=== PATIENT | male | born 1960 | race Caucasian/White ===

== ENCOUNTER → 2017-02-03 | Outpatient (CLI) | payer MEDICAID ==
[~2017-02-03] MED LIST: ADVA250A INH; ALBUAER3 INH; CARV6.252 PO; CEPH-460 PO; LEVA750T9 PO; LEVO125T4 PO; LISI-519 PO; OMEP20TA93 PO; PERC10TA27 PO; [UNRECOGNIZED DRUG - CODE] SL
[2017-02-03 10:18] LABS: PROTHROMBIN TIME - PATIENT 10.6 SEC (9.8-11.6)
[2017-02-03 10:24] LABS: BLOOD, URINE TRACE (NEG); COMMENT (UR) CULT NOT INDICATED; CULTURE IF INDICATED CULT NOT INDICATED; GLUCOSE,URINE NEG (NEG); KETONE, URINE NEG (NEG); MUCUS URINE FEW /lpf (OCC); NITRITE,URINE NEG (NEG); PH, URINE 5.5 (5.0-8.5); URINE COLOR YELLOW (YELLW/STRAW)
[2017-02-03 10:32] LABS: ANION GAP 7 MEQ/L (5-15); AST (GOT) 34 U/L (15-37); BICARBONATE 25.5 MEQ/L (21.0-32.0); BLOOD UREA NITROGEN 12 MG/DL (7-18); CHLORIDE 103 MEQ/L (98-107); GLOMERULAR FILTRATION RATE 80 ML/MIN (>89); GLUCOSE,FASTING 101 MG/DL (74-99); POTASSIUM 4.3 MEQ/L (3.5-5.1); SODIUM (NA) 135 MEQ/L (136-145)
[2017-02-03 10:34] LABS: ALT (GPT) 28 U/L (12-78)
[2017-02-03 10:36] LABS: ALKALINE PHOSPHATASE 66 U/L (45-117); TOTAL BILIRUBIN ADULT 0.3 MG/DL (0.2-1.0)
--- NOTE | 2017-02-03 10:44 | RADRPT ---
EXAM DATE/TIME: 02/03/2017 10:27 [facility] COMPARISON: No previous studies available for comparison. INDICATIONS : Evaluate for pneumothorax, pneumonia and communicable diseases. Pre-op for right bunionectomy. MEDICAL HISTORY : Hypertension. Chronic obstructive pulmonary disease. Asthma. Renal cancer. SURGICAL HISTORY : Partial kidney removal. ENCOUNTER: Initial ACUITY: 1 day PAIN SCORE: 0/10 LOCATION: Bilateral chest FINDINGS: PA and lateral views of the chest demonstrates hyperinflation which can be seen with CO PD. No infiltrates are seen. Heart is normal in size. The mediastinal contours are unremarkable. O sseous structures are intact. CONCLUSION: Hyperinflation which can be seen with COPD. No acute cardiopulmonary disease an d no evidence for an infiltrate. Pawan Loza MD on February 03, 2017 at 10:42 Board Certified Radiologist. This report was verified electronically.
[2017-02-03 11:02] LABS: AUTOMATED NEUTROPHIL # 6.2 TH/MM3 (1.8-7.7); BASOPHIL % 0.3 % (0.0-2.0); EOSINOPHIL # 0.2 TH/MM3 (0-0.4); EOSINOPHIL % 2.1 % (0.0-4.0); HEMO FLAGS DIFF FINAL; LYMPH % 13.7 % (9.0-44.0); LYMPHOCYTE # 1.1 TH/MM3 (1.0-4.8); MEAN CELL VOLUME 90.2 FL (80.0-100.0); MEAN CORPUSCULAR HEMOGLOBIN 30.1 PG (27.0-34.0); MEAN CORPUSCULAR HGB CONC 33.3 % (32.0-36.0); MONO % 10.3 % (0.0-8.0); NEUT % 73.6 % (16.0-70.0); PLATELET COUNT 235 TH/MM3 (150-450); RED BLOOD COUNT 4.87 MIL/MM3 (4.50-5.90); RED CELL DISTRIBUTION WIDTH 14.5 % (11.6-17.2); WHITE BLOOD COUNT 8.4 TH/MM3 (4.0-11.0)
--- NOTE | 2017-02-03 11:32 | EKG ---
Date Performed: 02/03/2017 Time Performed: 10:12:40 PTAGE: 56 years EKG: Sinus rhythm INCOMPLETE RIGHT BUNDLE BRANCH BLOCK LEFT ANTERIOR FASCICULAR BLOCK ABNORMAL ECG NO PREVIOUS TRACING DOCTOR: Arthur Torres Interpretating Date/Time 02/03/2017 11:31:51
== END ==
LOC: CPRE 09:23
PROVIDERS: ATTEND Podiatrist Primary Podiatric Medicine
DX: Z01.812 Encounter for preprocedural laboratory examination (principal); Z01.811 Encounter for preprocedural respiratory examination; Z01.810 Encounter for preprocedural cardiovascular examination; M20.41 Other hammer toe(s) (acquired), right foot; M20.11 Hallux valgus (acquired), right foot; M24.374 Pathological dislocation of right foot, not elsewhere classified; I45.2 Bifascicular block
CPT/HCPCS: 36415; 71020; 80053; 81001; 85025; 85610; 93005

== ENCOUNTER → 2017-02-07 | Day surgery (SDC) | payer MEDICAID ==
[~2017-02-07] VITALS: Ht 182.9 cm; Wt 105.3 kg
[~2017-02-07] MED LIST changes: +BUPIVACAINE HCL PF 0.5% 30 ML VIAL ONE; -CEPH-460 PO; +CHLORHEXIDINE GLUCONATE 2 % 1 PACK (2 CLOTHS) TOPICAL PRN; +DEXAMETHASONE SOD PHOS 4 MG/ML VIAL IV ONE; +DO NOT ADM ANY ANTICOAGULANT DRUGS PRN; +FAMOTIDINE 20 MG/2 ML VIAL ONE; +GLYCOPYRROLATE 1 MG/5 ML SYRINGE IV PUSH ONE; +INSULIN HUMAN REGULAR 1,000 UNITS/10 ML VIAL SQ PRN; +LACTATED RINGER'S 1000 ML IV PRN; -LEVA750T9 PO; +LIDOCAINE HCL 1% 50 ML VIAL ONE; +LIDOCAINE HCL 1% PF 5 ML AMPULE OTHER ONE; +METOPROLOL TARTRATE 25 MG TAB PO PRN; +MIDAZOLAM HCL 2 MG/2 ML VIAL IV ONE; +NALOXONE HCL 0.4 MG/ML AMP IV PUSH PRN; +NEOSTIGMINE 3 MG/3 ML SYR IV ONE; +ONDANSETRON HCL 4 MG/2 ML VIAL IV PUSH ONE; +PHENYLEPH/NS 1000 MCG/10 ML SYR IV ONE; +POVIDONE IODINE 5% (ANTISEPSIS KIT) 4 APPLICATIONS EACH NARE PRN; +PROPOFOL 200 MG/20 ML AMP IV ONE; +Post-op Orders (for Pharmacy) MISC XX ONE; +ROCURONIUM INJ 50 MG/5 ML SYRINGE IV PUSH ONE; +SODIUM CHLORID 0.9% 500 ML IV PRN; +SODIUM CHLORIDE 0.9% FLUSH 10 ML FLUSH IV FLUSH PRN; +SODIUM CHLORIDE 0.9% FLUSH 10 ML FLUSH IV FLUSH SCH; +ePHEDrine/NS 25 MG/5 ML SYR IV ONE
[2017-02-07] MEDS: ceFAZolin 2 GM PREMIX 50 ML IV SCH ×2 (09:03→09:32)
--- NOTE | 2017-02-07 10:53 | PD.OP ---
Operative Report Date of Surgery: Feb 07, 2017 Preoperative Diagnosis: (1) Hallux abducto valgus (2) Hammertoe of right foot Right foot and right second toe Postoperative Diagnosis: (1) Hallux abducto valgus (2) Hammertoe of right foot Right foot and right second toe Procedure: 1) Maher bunionectomy right foot 2) resection of proximal phalanx base and MPJ second toe right foot 3) arthrodesis PIPJ second toe right foot Anesthesia: General inhalation Surgeon: Pawan Turner DPM Custom Shop Worker(s): None Operation and Findings: Patient is brought to the operating room placed on the operating table in a supine position. A pneumatic ankle cuff was placed around the patient's right ankle after adequate web roll padding. Patient was given general inhalation anesthesia. The right foot was prepped and draped in the usual sterile manner. After the appropriate timeout was performed the right foot was elevated above the operating table for a period 3 minutes at which time the pneumatic ankle cuff was inflated to 250 mmHg. The right foot was lowered to the operating table and attention was directed to the right foot which was noted to have severe hallux abductovalgus deformity with arthritic changes at the first MPJ. Some also noted patient had a severe hammertoe second deformity with subluxation at the metatarsal phalangeal joint . Attention was directed to the bunion and hallux where a 5 cm linear incision was centered over the metatarsal phalangeal joint. The incision was made medial to the extensor hallucis longus tendon. Incision was deepened down through subcutaneous tissue taking care to tie off any superficial bleeding vessels and retracting all vital structures. Incision was deepened in the head of the first metatarsal and base of the proximal phalanx was freed up from its subcutaneous and capsular edges. Using an oscillating saw the dorsal medial bony eminence was resected. At this time a Maher bunionectomy was performed by removing the proximal third of the first proximal phalanx. Should be noted the hallux now set a more correct anatomical position. There is flushed with copious amounts of sterile saline. Capsular edges were purse stringed into the space between the first metatarsal head and the remaining proximal phalanx. Subcutaneous tissue and capsular edges were closed with 30 and 2-0 Vicryl. Skin edges were reapproximated and closed with 3 -0 Prolene. Should be noted that the hallux sat in a more correct anatomical position. Tissue was directed to the second toe the right foot which is noted to have severe hammertoe contraction which was fixed at the proximal interphalangeal joint along with subluxation of the second MPJ at this time a 6 cm linear incision was made on the dorsal aspect of the second toe proximal to the MPJ distal to the intermediate phalanx. The incision was deepened using sharp and blunt dissection taking care to tie off all superficial bleeding vessels and retracting all vital structures. At this time the proximal interphalangeal joint was freed up from its attachments and using an oscillating saw the head of the proximal phalanx and the base of the intermediate phalanx was resected. Attention was then directed back to the second MPJ where the base of the proximal phalanx was freed up and resected in order to get reduction of the contraction and subluxation. At this time a 0.45 K wire was driven from the intermittent immediate phalanx distally out the tip of the second toe and then retrograded back into the proximal phalanx and the head of the first metatarsal. The second toe was noted to sit in the correct anatomical position. The cutaneous tissue was reapproximated and closed with 3-0 Vicryl. Skin edges were reapproximated and closed with 3-0 Prolene. The right foot first and second ray area was then anesthetized with 15 cc of 0.5 % Marcaine. Adaptic was applied over the surgical incision sites followed by 4 x 4's Sanjuana. Pneumatic ankle cuff was deflated at the 59 minute ramon and the neurovascular status returned to all digits of the right foot Sponge and instrument counts were noted to be correct. Estimated blood loss was less than 10 cc. Patient tolerated procedures and anesthesia well and left the OR to PACU in apparent satisfactory condition with all vital signs stable and neurovascular status intact to all digits of the right foot. Pawan Turner DPM Feb 07, 2017 10:53
--- NOTE | 2017-02-07 11:34 | RADRPT ---
EXAM DATE/TIME: 02/07/2017 11:10 [facility] COMPARISON: No previous studies available for comparison. INDICATIONS : Post-op right foot, second digit bunionectomy. MEDICAL HISTORY : Hypertension. Chronic obstructive pulmonary disease. Asthma. Renal cancer. SURGICAL HISTORY : Partial kidney removal. ENCOUNTER: Initial ACUITY: 1 day PAIN SCORE: 0/10 LOCATION: Right foot FINDINGS: Again is seen bridging the second tarsometatarsal joint. Subluxation is evident at the first tarsome tatarsal joint. CONCLUSION: Findings as above.. Torito Mercedes MD FACR on February 07, 2017 at 11:31 Board Certified Radiologist. This report was verified electronically.
[2017-02-07 11:55] VITALS: BP 108/66; PULSE 74; RESP 18; TEMP 98.9; O2SAT 96
== END | disposition home or self-care (01) ==
LOC: HSDC 07:11
PROVIDERS: ATTEND Podiatrist Primary Podiatric Medicine
DX: M20.41 Other hammer toe(s) (acquired), right foot (principal); M20.11 Hallux valgus (acquired), right foot; M24.374 Pathological dislocation of right foot, not elsewhere classified; I10 Essential (primary) hypertension; J44.9 Chronic obstructive pulmonary disease, unspecified; Z85.528 Personal history of other malignant neoplasm of kidney
CPT/HCPCS: 01480; 28126; 28285; 28292; 73630; J0690; J1100; J2250; J2370; J2405; J2710; J3010; J7120; L3260

== ENCOUNTER 2017-02-17 02:45 | Inpatient (IN) | payer MEDICAID ==
[~2017-02-17] VITALS: Ht 182.9 cm; Wt 102.4 kg
[~2017-02-17 02:45] MED LIST changes: -BUPIVACAINE HCL PF 0.5% 30 ML VIAL ONE; -CHLORHEXIDINE GLUCONATE 2 % 1 PACK (2 CLOTHS) TOPICAL PRN; -DEXAMETHASONE SOD PHOS 4 MG/ML VIAL IV ONE; -DO NOT ADM ANY ANTICOAGULANT DRUGS PRN; -FAMOTIDINE 20 MG/2 ML VIAL ONE; -GLYCOPYRROLATE 1 MG/5 ML SYRINGE IV PUSH ONE; -INSULIN HUMAN REGULAR 1,000 UNITS/10 ML VIAL SQ PRN; -LACTATED RINGER'S 1000 ML IV PRN; -LIDOCAINE HCL 1% 50 ML VIAL ONE; -LIDOCAINE HCL 1% PF 5 ML AMPULE OTHER ONE; -METOPROLOL TARTRATE 25 MG TAB PO PRN; -MIDAZOLAM HCL 2 MG/2 ML VIAL IV ONE; -NALOXONE HCL 0.4 MG/ML AMP IV PUSH PRN; -NEOSTIGMINE 3 MG/3 ML SYR IV ONE; -ONDANSETRON HCL 4 MG/2 ML VIAL IV PUSH ONE; -PHENYLEPH/NS 1000 MCG/10 ML SYR IV ONE; -POVIDONE IODINE 5% (ANTISEPSIS KIT) 4 APPLICATIONS EACH NARE PRN; -PROPOFOL 200 MG/20 ML AMP IV ONE; -Post-op Orders (for Pharmacy) MISC XX ONE; -ROCURONIUM INJ 50 MG/5 ML SYRINGE IV PUSH ONE; -SODIUM CHLORID 0.9% 500 ML IV PRN; -SODIUM CHLORIDE 0.9% FLUSH 10 ML FLUSH IV FLUSH PRN; -SODIUM CHLORIDE 0.9% FLUSH 10 ML FLUSH IV FLUSH SCH; -ePHEDrine/NS 25 MG/5 ML SYR IV ONE
[2017-02-17 04:00] VITALS: BP 132/76; PULSE 74; RESP 17; TEMP 96.4; O2SAT 97
[2017-02-17] MEDS ORDERED: ACETAMINOPHEN 325 MG TAB PO PRN (05:00)
[2017-02-17] MEDS ORDERED: MAGNESIUM HYDROXIDE SUSP 30 ML CUP PO PRN (05:00)
[2017-02-17] MEDS ORDERED: RESP: ALBUTEROL 2.5 MG/IPRATROPIUM 0.5 MG NEB (PRN) NEB (05:00)
[2017-02-17] MEDS ORDERED: SODIUM CHLORIDE 0.9% FLUSH 10 ML FLUSH IV FLUSH PRN (05:00)
[2017-02-17] MEDS ORDERED: SENNOSIDES 8.6 MG TAB PO PRN (05:00)
[2017-02-17] MEDS ORDERED: LACTULOSE SYRUP 20 GM/30 ML CUP PO PRN (05:00)
[2017-02-17] MEDS ORDERED: NALOXONE HCL 0.4 MG/ML AMP IV PUSH PRN (05:00)
[2017-02-17] MEDS ORDERED: BISACODYL 10 MG SUPP RECTAL PRN (05:00)
[2017-02-17] MEDS: oxyCODONE/ACETAMINOPHEN 10 MG/325 MG TAB PO PRN ×5 (05:38→22:46)
--- NOTE | 2017-02-17 06:21 | HHI.HP ---
[facility] Trinidad Greer Admission Diagnosis Right toe postsurgical cellulitis following bunionectomy and pin fixation of second phalanx . Diagnoses: (1) Cellulitis, wound, post-operative Chief Complaint: Right foot pain Travel History International Travel<30 Days: No Contact w/Intl Traveler <30 Da: No History of Present Illness Mr. Hendrickson is a 56 year old male with a history of atrial fibrillation, COPD, depression, Hodgkin's lymphoma, hypertension, renal carcinoma, and sleep apnea who underwent the following procedure: Maher bunionectomy right foot, resection of proximal phalanx base and MPJ second toe right foot, and arthrodesis PIPJ second toe right foot by Dr. Turner on 02/07/17 and presented to [facility] for evaluation of increased pain and swelling of right first toe with fluid leaking out from underneath his bandage. He was found to have findings consistent with postoperative cellulitis and was transferred to [facility] for evaluation by Dr. Turner and medical management. Patient is seen in the hospital room. He tells me that he has had pain from the surgery since the but it has increased in severity and he says he couldn't see all his underneath the large bandaging. He was supposed to have a follow-up appointment with Dr. Turner today, but decided to go to the hospital last night his pain was so severe and worse with movement and pressure. He noted extensive redness and discharge from the wounds upon removal of the bandage at the emergency room at [facility]. Records from [facility] were reviewed and the following is noted: Right foot x-ray was performed 02/17/2017 showing postsurgical changes of bunionectomy with reaction at the base of the great toe. Soft tissue swelling and focal osteopenia of the resection site without distractive changes favored to represent postsurgical hyperemia rather than osteomyelitis. Post surgical change of pin fixation second phalanx subacute fracture of fifth proximal phalanx. White blood count was 8.9 and electrolytes were unremarkable with the exception of elevated glucose of 130. The patient received vancomycin 1 g at 0006 and Zosyn 3.375 at 0111. The patient denies any fever, chest pain, shortness of breath, dizziness, fatigue, nausea, vomiting, or diarrhea. He reports chronically feeling chilled and noted no recent increase. . Review of Systems Except as stated in HPI: all other systems reviewed are Neg Past Family Social History Past Medical History Atrial fibrillation status post ablation TIA COPD Depression Hodgkin's lymphoma Hypertension Renal carcinoma Sleep apnea . Past Surgical History 02/07/17 - 1) Maher bunionectomy right foot 2) resection of proximal phalanx base and MPJ second toe right foot 3) arthrodesis PIPJ second toe right foot by Dr. Turner Left partial nephrectomy 2010 Right knee arthroscopy 3 Right parotidectomy . Reported Medications . Reported Meds & Active Scripts Active Percocet (Oxycodone-Acetaminophen) 10-325 mg Tab 1 Tab PO Q4H PRN Reported Carvedilol 6.25 Mg Tab 6.25 Mg PO DAILY Subsys Sublinqual (Fentanyl) Unknown Strength [place] Unknown Dose SL DIRECTED Proair Hfa 8.5 GM Inh (Albuterol Sulfate) 90 Mcg/Act Aer 1 Puff INH Q4H PRN 108 mcg/actuation Omeprazole 20 Mg Tab 20 Mg PO DAILY Lisinopril 5 Mg Tab 5 Mg PO DAILY Levothyroxine (Levothyroxine Sodium) 125 Mcg Tab 125 Mcg PO DAILY Advair Diskus Inh (Fluticasone-Salmeterol Inh) 250-50 Mcg/Blist Aer 1 Puff INH BID Rinse mouth after use. Allergies: Coded Allergies: No Known Allergies (Verified Adverse Reaction, Unknown, 02/10/17) Active Ordered Medications Current Medications Sodium Chloride (NS Flush) 2 ml UNSCH PRN IV FLUSH FLUSH AFTER USING IV ACCESS ; Start 02/17/17 at 05:00 Sodium Chloride (NS Flush) 2 ml BID IV FLUSH ; Start 02/17/17 at 09:00 Acetaminophen (Tylenol) 650 mg Q4H PRN PO TEMP > 100.4; Start 02/17/17 at 05: 00 Naloxone HCl (Narcan Inj) 0.4 mg UNSCH PRN IV PUSH SEE LABEL COMMENTS; Start 02/17/17 at 05:00 Magnesium Hydroxide (Milk Of Magnesia Liq) 30 ml Q12H PRN PO Mild constipation ; Start 02/17/17 at 05:00 Sennosides (Senokot) 17.2 mg Q12H PRN PO Moderate constipation; Start at 05:00 Bisacodyl (Dulcolax Supp) 10 mg DAILY PRN RECTAL SEVERE CONSITIPATION; Start 02/17/17 at 05:00 Lactulose (Lactulose Liq) 30 ml DAILY PRN PO SEVERE CONSITIPATION; Start 02/17 at 05:00 Albuterol/ Ipratropium (Duoneb Neb) 1 ampule Q4HR NEB PRN NEB WHEEZING; Start 02/17/17 at 05:00 Oxycodone/ Acetaminophen (Percocet 10-325 Mg) 1 tab Q4H PRN PO Pain > 4 Last administered on 02/17/17t 05:38; Start 02/17/17 at 05:15 Carvedilol (Coreg) 6.25 mg DAILY PO ; Start 02/17/17 at 09:00 Levothyroxine Sodium (Synthroid) 125 mcg DAILY@0600 PO ; Start 02/17/17 at 09: 00 Lisinopril (Prinivil) 5 mg DAILY PO ; Start 02/17/17 at 09:00 Budesonide/ Formoterol Fumarate (Symbicort 160-4.5 Inh) 2 puff BID INH ; Start 02/17/17 at 09:00 Pantoprazole Sodium (Protonix) 20 mg DAILY PO ; Start 02/17/17 at 09:00 Pneumococcal Polyvalent Vaccine (Pneumovax-23 Inj) 25 mcg ONCE ONCE IM ; Start 02/18/17 at 10:00; Stop 02/18/17 at 10:01 Influenza Virus Vaccine (Flu (Quadrivalent) Vaccine Inj) 0.5 ml ONCE ONCE IM ; Start 02/18/17 at 10:00; Stop 02/18/17 at 10:01 . Family History Mother with schizophrenia and diabetes mellitus Father with lung cancer . Social History Tobacco: Smokes over one pack per day since the age of 16 . . Physical Exam Vital Signs Vital Signs Date Time Temp Pulse Resp B/P (MAP) Pulse Ox O2 Delivery O2 Flow Rate FiO2 02/17/17 04:00 96.4 74 17 132/76 (94) 97 Physical Exam GENERAL: This is a well-nourished, well-developed patient, in no apparent distress. SKIN: Right distal foot with erythema and edema, first and second phalanx with pale skin and serous/purulent exudate noted from surgical wound. HEAD: Atraumatic. Normocephalic. EYES: No scleral icterus. No injection or drainage. ENT: Nose without bleeding, purulent drainage. NECK: Trachea midline. No JVD. CARDIOVASCULAR: Regular rate and rhythm without murmurs, gallops, or rubs. RESPIRATORY: Clear to auscultation. Breath sounds diminished but equal bilaterally. No wheezes, rales, or rhonchi. GASTROINTESTINAL: Abdomen soft, non-tender, nondistended. No guarding. MUSCULOSKELETAL: Extremities without clubbing, cyanosis, or edema. No calf tenderness. NEUROLOGICAL: Awake and alert. Motor and sensory grossly within normal limits. Normal speech. . Caprini VTE Risk Assessment Caprini VTE Risk Assessment: Mod/High Risk (score >= 2) Caprini Risk Assessment Model Point Value = 1 Point Value = 2 Point Value = 3 Point Value = 5 Age 41-60 Minor surgery BMI > 25 kg/m2 Swollen legs Varicose veins or History of unexplained or recurrent spontaneous Oral contraceptives or hormone replacement Sepsis (< 1 month) Serious lung disease, including pneumonia (< 1 month) Abnormal pulmonary function Acute myocardial infarction Congestive heart failure (< 1 month) History of inflammatory bowel disease Medical patient at bed rest Age 61-74 Arthroscopic surgery Major open surgery (> 45 min) Laparoscopic surgery (> 45 min) Malignancy Confined to bed (> 72 hours) Immobilizing plaster cast Central venous access Age >= 75 History of VTE Family history of VTE Factor V Leiden Prothrombin [id number] Lupus anticoagulant Anticardiolipin antibodies Elevated serum homocysteine Heparin-induced thrombocytopenia Other congenital or acquired thrombophilia Stroke (< 1 month) Elective arthroplasty Hip, pelvis, or leg fracture Acute spinal cord injury (< 1 month) Prophylaxis Regimen Total Risk Factor Score Risk Level Prophylaxis Regimen 0-1 Low Early ambulation 2 Moderate Order ONE of the following: *Sequential Compression Device (SCD) *Heparin 5000 units SQ BID 3-4 Higher Order ONE of the following medications: *Heparin 5000 units SQ TID *Enoxaparin/Lovenox 40 mg SQ daily (WT < 150 kg, CrCl > 30 mL/min) *Enoxaparin/Lovenox 30 mg SQ daily (WT < 150 kg, CrCl > 10-29 mL/min) *Enoxaparin/Lovenox 30 mg SQ BID (WT < 150 kg, CrCl > 30 mL/min) AND/OR *Sequential Compression Device (SCD) 5 or more Highest Order ONE of the following medications: *Heparin 5000 units SQ TID (Preferred with Epidurals) *Enoxaparin/Lovenox 40 mg SQ daily (WT < 150 kg, CrCl > 30 mL/min) *Enoxaparin/Lovenox 30 mg SQ daily (WT < 150 kg, CrCl > 10-29 mL/min) *Enoxaparin/Lovenox 30 mg SQ BID (WT < 150 kg, CrCl > 30 mL/min) AND *Sequential Compression Device (SCD) Assessment and Plan Problem List: (1) Cellulitis, wound, post-operative ICD Code: T81.4XXA - Infection following a procedure, initial encounter (2) COPD (chronic obstructive pulmonary disease) ICD Code: J44.9 - Chronic obstructive pulmonary disease, unspecified Status: Chronic (3) Hypertension ICD Code: I10 - Essential (primary) hypertension Status: Chronic (4) Hypothyroidism ICD Code: E03.9 - Hypothyroidism, unspecified Status: Chronic (5) Atrial fibrillation ICD Code: I48.91 - Unspecified atrial fibrillation Assessment and Plan Mr. Hendrickson is a 56 year old male with a history of atrial fibrillation, COPD, depression, Hodgkin's lymphoma, hypertension, renal carcinoma, and sleep apnea who underwent the following procedure: Maher bunionectomy right foot, resection of proximal phalanx base and MPJ second toe right foot, and arthrodesis PIPJ second toe right foot by Dr. Turner on 02/07/17 and presented to [facility] for evaluation of increased pain and swelling of right first toe with fluid leaking out from underneath his bandage. He was found to have findings consistent with postoperative cellulitis and was transferred to [facility] for evaluation by Dr. Turner and medical management. Cellulitis right distal foot - postoperative bunionectomy - Right foot x-ray was performed 02/17/2017 at [facility] showing postsurgical changes of bunionectomy with reaction at the base of the great toe. Soft tissue swelling and focal osteopenia of the resection site without distractive changes favored to represent postsurgical hyperemia rather than osteomyelitis. Post surgical change of pin fixation second phalanx subacute fracture of fifth proximal phalanx. - Defer further imaging to podiatry - Consult podiatry - Oxycodone/APAP 10/325 mg every 4 hours as needed for pain - Antibiotics: Continue vancomycin and Zosyn - NPO COPD - Continue on Symbicort - Duo nebs every 4 hours as needed for wheezing Hypertension - Resume home medications (carvedilol and lisinopril) - Monitor blood pressure trends and adjust as indicated Hypothyroidism - Continue home Synthroid and monitor History of atrial fibrillation - Cardiac telemetry to monitor for arrhythmia DVT prophylaxis - SCDs . Discussed Condition With Patient, RN, and Dr. Longoria . Physician Certification 2 Midnight Certification Type: Admission for Inpatient Services Order for Inpatient Services The services are ordered in accordance with Medicare regulations or non- Medicare payer requirements, as applicable. In the case of services not specified as inpatient-only, they are appropriately provided as inpatient services in accordance with the 2-midnight benchmark. Estimated LOS (days): 3 days is the estimated time the patient will need to remain in the hospital, assuming treatment plan goals are met and no additional complications. Post-Hospital Plan: Home Candice Prabhakar Feb 17, 2017 06:21
[2017-02-17] MEDS ORDERED: Vancomycin Consult Pharmacy 1 EA OTHER SCH (07:00)
[2017-02-17 08:00] VITALS: BP 108/68; PULSE 73; RESP 17; TEMP 97.6; O2SAT 97
[2017-02-17 09:03] LABS: AUTOMATED NEUTROPHIL # 5.8 TH/MM3 (1.8-7.7); BASOPHIL % 0.6 % (0.0-2.0); EOSINOPHIL # 0.2 TH/MM3 (0-0.4); EOSINOPHIL % 2.5 % (0.0-4.0); HEMATOCRIT 37.8 % (39.0-51.0); HEMO FLAGS DIFF FINAL; LYMPH % 12.2 % (9.0-44.0); MEAN CELL VOLUME 89.1 FL (80.0-100.0); MEAN CORPUSCULAR HEMOGLOBIN 30.4 PG (27.0-34.0); MEAN CORPUSCULAR HGB CONC 34.2 % (32.0-36.0); MONO % 10.6 % (0.0-8.0); NEUT % 74.1 % (16.0-70.0); PLATELET COUNT 262 TH/MM3 (150-450); RED BLOOD COUNT 4.25 MIL/MM3 (4.50-5.90); RED CELL DISTRIBUTION WIDTH 14.5 % (11.6-17.2); WHITE BLOOD COUNT 7.8 TH/MM3 (4.0-11.0)
--- NOTE | 2017-02-17 09:07 | PD.POD.CON ---
Patient Intake Chief Complaint Pain and possible infection right foot Consult Requested by Reason for Consult Evaluation of right foot pain and possible infection Primary Care Physician Trinidad Greer History of Present Illness Patient is a 56-year-old male who is approximately 10 days status post Maher bunionectomy and arthrodesis second toe right foot. Patient is being overly active at home. He has a postop appointment scheduled in the office today. Yesterday he noticed some drainage coming from his right foot through the dressing. Patient went to [facility] which I ordered lab's and x- rays. He had a normal white count. He is afebrile. He was transferred from [facility] to [place] and admitted. He was started on Zosyn and vancomycin. Patient seen in his room in no apparent distress and comfortable. Coded Allergies: No Known Allergies (Verified Adverse Reaction, Unknown, 02/10/17) Preferred Language to Discuss: Greenlandic Barriers to Learning: None Vital Signs Date Time Temp Pulse Resp B/P (MAP) Pulse Ox O2 Delivery O2 Flow Rate FiO2 02/17/17 08:00 97.6 73 17 108/68 (81) 97 02/17/17 04:00 96.4 74 17 132/76 (94) 97 Pain scale used: 0-10 numeric scale Pain score: 4 Medications Current Medications Sodium Chloride (NS Flush) 2 ml UNSCH PRN IV FLUSH FLUSH AFTER USING IV ACCESS ; Start 02/17/17 at 05:00 Sodium Chloride (NS Flush) 2 ml BID IV FLUSH ; Start 02/17/17 at 09:00 Acetaminophen (Tylenol) 650 mg Q4H PRN PO TEMP > 100.4; Start 02/17/17 at 05: 00 Naloxone HCl (Narcan Inj) 0.4 mg UNSCH PRN IV PUSH SEE LABEL COMMENTS; Start 02/17/17 at 05:00 Magnesium Hydroxide (Milk Of Magnesia Liq) 30 ml Q12H PRN PO Mild constipation ; Start 02/17/17 at 05:00 Sennosides (Senokot) 17.2 mg Q12H PRN PO Moderate constipation; Start at 05:00 Bisacodyl (Dulcolax Supp) 10 mg DAILY PRN RECTAL SEVERE CONSITIPATION; Start 02/17/17 at 05:00 Lactulose (Lactulose Liq) 30 ml DAILY PRN PO SEVERE CONSITIPATION; Start 02/17 at 05:00 Albuterol/ Ipratropium (Duoneb Neb) 1 ampule Q4HR NEB PRN NEB WHEEZING; Start 02/17/17 at 05:00 Oxycodone/ Acetaminophen (Percocet 10-325 Mg) 1 tab Q4H PRN PO Pain > 4 Last administered on 02/17/17t 05:38; Start 02/17/17 at 05:15 Carvedilol (Coreg) 6.25 mg DAILY PO ; Start 02/17/17 at 09:00 Levothyroxine Sodium (Synthroid) 125 mcg DAILY@0600 PO ; Start 02/17/17 at 09: 00 Lisinopril (Prinivil) 5 mg DAILY PO ; Start 02/17/17 at 09:00 Budesonide/ Formoterol Fumarate (Symbicort 160-4.5 Inh) 2 puff BID INH ; Start 02/17/17 at 09:00 Pantoprazole Sodium (Protonix) 20 mg DAILY PO ; Start 02/17/17 at 09:00 Pneumococcal Polyvalent Vaccine (Pneumovax-23 Inj) 25 mcg ONCE ONCE IM ; Start 02/18/17 at 10:00; Stop 02/18/17 at 10:01 Influenza Virus Vaccine (Flu (Quadrivalent) Vaccine Inj) 0.5 ml ONCE ONCE IM ; Start 02/18/17 at 10:00; Stop 02/18/17 at 10:01 Pharmacy Profile Note 0 ml @ 0 mls/hr UNSCH OTHER ; Start 02/17/17 at 07:00; Stop 02/17/17 at 07:10; Status DC Piperacillin Sod/ Tazobactam Sod 50 ml @ 100 mls/hr Q6H IV ; Start 02/17/17 at 07:00 Past, Family & Social History Past Medical History HEENT: REPORTS HX OF: Recurrent sinusitis Endocrine: REPORTS HX OF: Hypothyroidism Respiratory: REPORTS HX OF: COPD Cardiovascular: REPORTS HX OF: Atrial fibrillation, Hypertension Gastrointestinal: REPORTS HX OF: GERD Genitourinary: REPORTS HX OF: Kidney disease Musculoskeletal: REPORTS HX OF: Gout, Osteoarthritis Cancer/Hematology: REPORTS HX OF: Kidney cancer, Lymphoma Past Surgical History Cardiovascular: REPORTS HX OF: Other cardiac surgery Genitourinary: REPORTS HX OF: Nephrectomy (partial left 2010) Musculoskeletal: REPORTS HX OF: Other musculoskeletal srg (bunionectomy and arthrodesis of second toe right foot) Family Medical History FH: lung cancer G8 FATHER, , Age:Unknown Substance Use Substance Use: Denies use Review of Systems Notes Changes in his 14 point review of systems exam from the previous visit Constitutional: COMPLAINS OF: Pain Exam-Podiatry Constitutional General appearance: comfortable Nutritional status: overweight Orientation: alert and oriented x3 Dermatological Exam Skin Temp - Right: Within Normal Limits Skin Texture - Right: Within Normal Limits Skin Elasticity - Right: Within Normal Limits Skin Tugor - Right: Within Normal Limits Hair Growth - Right: Within Normal Limits Pigmentation - Right: Within Normal Limits Skin Temp - Left: Within Normal Limits Skin Texture - Left: Within Normal Limits Skin Elasticity - Left: Within Normal Limits Skin Tugor - Left: Within Normal Limits Hair Growth - Left: Within Normal Limits Pigmentation - Left: Within Normal Limits Other: Scars, Surgery,Injury Vertical site was examined. Wound edges are well coapted. Sutures in place. Appears the patient had a superficial blister overlying the surgical area. This is denuded. No purulence seen. Some edema is present. Some localized erythema is present. No ascending cellulitis noted. Excellent anatomical alignment of the surgical sites are noted. Vascular/Lymphatic Exam R Dorsails Pedis: Palpable L Dorsails Pedis: Palpable R Posterior Tibial: Palpable L Posterior Tibial: Palpable Neurologic Exam Details Her neurological deficit seen Muscle Strength Dorsiflexion (Right): Normal Plantarflexion (Right): Normal Inversion (Right): Normal Eversion (Right): Normal Digital (Right): Normal Dorsiflexion (Left): Normal Plantarflexion (Left): Normal Inversion (Left): Normal Eversion (Left): Normal Digital (Left): Normal Foot Range of Motion Dorsiflexion (Right): Normal Plantarflexion (Right): Normal Inversion (Right): Normal Eversion (Right): Normal Digital (Right): Normal Dorsiflexion (Left): Normal Plantarflexion (Left): Normal Inversion (Left): Normal Eversion (Left): Normal Digital (Left): Normal Lab and Radiology Results Laboratory Laboratory Tests Test 02/17/17 08:12 White Blood Count 7.8 TH/MM3 Red Blood Count 4.25 MIL/MM3 Hemoglobin 12.9 GM/DL Hematocrit 37.8 % Mean Corpuscular Volume 89.1 FL Mean Corpuscular Hemoglobin 30.4 PG Mean Corpuscular Hemoglobin Concent 34.2 % Red Cell Distribution Width 14.5 % Platelet Count 262 TH/MM3 Mean Platelet Volume 8.3 FL Neutrophils (%) (Auto) 74.1 % Lymphocytes (%) (Auto) 12.2 % Monocytes (%) (Auto) 10.6 % Eosinophils (%) (Auto) 2.5 % Basophils (%) (Auto) 0.6 % Neutrophils # (Auto) 5.8 TH/MM3 Lymphocytes # (Auto) 1.0 TH/MM3 Monocytes # (Auto) 0.8 TH/MM3 Eosinophils # (Auto) 0.2 TH/MM3 Basophils # (Auto) 0.0 TH/MM3 CBC Comment DIFF FINAL Differential Comment Laboratory Tests Test 02/17/17 08:12 Radiology Laboratory Tests Test 02/17/17 08:12 White Blood Count 7.8 TH/MM3 Red Blood Count 4.25 MIL/MM3 Hemoglobin 12.9 GM/DL Hematocrit 37.8 % Mean Corpuscular Volume 89.1 FL Mean Corpuscular Hemoglobin 30.4 PG Mean Corpuscular Hemoglobin Concent 34.2 % Red Cell Distribution Width 14.5 % Platelet Count 262 TH/MM3 Mean Platelet Volume 8.3 FL Neutrophils (%) (Auto) 74.1 % Lymphocytes (%) (Auto) 12.2 % Monocytes (%) (Auto) 10.6 % Eosinophils (%) (Auto) 2.5 % Basophils (%) (Auto) 0.6 % Neutrophils # (Auto) 5.8 TH/MM3 Lymphocytes # (Auto) 1.0 TH/MM3 Monocytes # (Auto) 0.8 TH/MM3 Eosinophils # (Auto) 0.2 TH/MM3 Basophils # (Auto) 0.0 TH/MM3 CBC Comment DIFF FINAL Differential Comment Laboratory Tests Test 02/17/17 08:12 Assessment/Plan Problem List: (1) Cellulitis, wound, post-operative Status: Acute Additional Plans & Procedures PLAN: Incision site was dressed with Maxorb II sterile gauze and Sanjuana. Patient will have IV antibiotics today and be discharged tomorrow on oral antibiotics. I will follow in the office. Problem Qualifiers (1) Cellulitis, wound, post-operative: Qualified Codes: T81.4XXA - Infection following a procedure, initial encounter Pawan Turner DPM Feb 17, 2017 09:07
[2017-02-17 09:28] LABS: BICARBONATE 22.8 MEQ/L (21.0-32.0); POTASSIUM 3.6 MEQ/L (3.5-5.1)
[2017-02-17] MEDS: PANTOPRAZOLE SOD 20 MG DELAYED RELEASE TAB PO SCH (09:29)
[2017-02-17] MEDS: CARVEDILOL 6.25 MG TAB PO SCH (09:29)
[2017-02-17] MEDS: PIPERACIL-TAZO 3.375 GM PREMIX 50 ML IV SCH ×3 (09:29→18:08)
[2017-02-17] MEDS: LISINOPRIL 5 MG TAB PO SCH (09:29)
[2017-02-17] MEDS: LEVOTHYROXINE SODIUM 125 MCG TAB PO SCH (09:31)
--- NOTE | 2017-02-17 09:52 | PD.PN.STU ---
Subjective Remarks Patient is a 56-year old male 10 days s/p bunionectomy with hammer toe repair in R foot by Dr. Turner with a history of A fib, COPD, Hodgkin's lymphoma, RCC. He presented to [facility] on 02/16 because of concerns with pain, redness, swelling, and oozing from surgical site. X-ray R foot was taken 02/17 showing postsurgical changes of bunionectomy with reaction at the base of the great toe; soft tissue swelling and focal osteopenia of the resection site without distractive changes favored to represent postsurgical hyperemia rather than osteomyelitis; post surgical change of pin fixation second phalanx subacute fracture of fifth proximal phalanx. He was transferred to [place] for eval by Dr. Turner. Today, patient has no fever/chills, no SOB, no pains other than in his right foot. States pain is well-controlled with Percocet. He has no other concerns. Objective Vitals Vital Signs Date Time Temp Pulse Resp B/P (MAP) Pulse Ox O2 Delivery O2 Flow Rate FiO2 02/17/17 08:00 97.6 73 17 108/68 (81) 97 02/17/17 04:00 96.4 74 17 132/76 (94) 97 I/O 02/16/17 02/16/17 02/16/17 02/17/17 02/17/17 02/17/17 07:00 15:00 23:00 07:00 15:00 23:00 Intake Total 240 ml Balance 240 ml Intake Oral 240 ml # Voids 1 Result Diagram: 02/17/17 0812 Objective Remarks GENERAL: 56-year old white male, appears stated age, sitting up in bed, in no acute distress. SKIN: Warm and dry. HEAD: Normocephalic. EYES: No scleral icterus. No injection or drainage. NECK: Supple, trachea midline. No JVD or lymphadenopathy. CARDIOVASCULAR: Regular rate and rhythm without murmurs, gallops, or rubs. Normal S1, S2. RESPIRATORY: Breath sounds equal bilaterally. No accessory muscle use. GASTROINTESTINAL: Abdomen soft, non-tender, nondistended. MUSCULOSKELETAL: Surgical dressing on R foot, 2nd digit exposed with surgical pin present. No pretibial edema or erythema in R leg. BACK: Nontender without obvious deformity. No CVA tenderness. Medications and IVs Current Medications Sodium Chloride (NS Flush) 2 ml UNSCH PRN IV FLUSH FLUSH AFTER USING IV ACCESS ; Start 02/17/17 at 05:00 Sodium Chloride (NS Flush) 2 ml BID IV FLUSH ; Start 02/17/17 at 09:00 Acetaminophen (Tylenol) 650 mg Q4H PRN PO TEMP > 100.4; Start 02/17/17 at 05: 00 Naloxone HCl (Narcan Inj) 0.4 mg UNSCH PRN IV PUSH SEE LABEL COMMENTS; Start 02/17/17 at 05:00 Magnesium Hydroxide (Milk Of Magnesia Liq) 30 ml Q12H PRN PO Mild constipation ; Start 02/17/17 at 05:00 Sennosides (Senokot) 17.2 mg Q12H PRN PO Moderate constipation; Start at 05:00 Bisacodyl (Dulcolax Supp) 10 mg DAILY PRN RECTAL SEVERE CONSITIPATION; Start 02/17/17 at 05:00 Lactulose (Lactulose Liq) 30 ml DAILY PRN PO SEVERE CONSITIPATION; Start 02/17 at 05:00 Albuterol/ Ipratropium (Duoneb Neb) 1 ampule Q4HR NEB PRN NEB WHEEZING; Start 02/17/17 at 05:00 Oxycodone/ Acetaminophen (Percocet 10-325 Mg) 1 tab Q4H PRN PO Pain > 4 Last administered on 02/17/17t 05:38; Start 02/17/17 at 05:15 Carvedilol (Coreg) 6.25 mg DAILY PO ; Start 02/17/17 at 09:00 Levothyroxine Sodium (Synthroid) 125 mcg DAILY@0600 PO ; Start 02/17/17 at 09: 00 Lisinopril (Prinivil) 5 mg DAILY PO ; Start 02/17/17 at 09:00 Budesonide/ Formoterol Fumarate (Symbicort 160-4.5 Inh) 2 puff BID INH ; Start 02/17/17 at 09:00 Pantoprazole Sodium (Protonix) 20 mg DAILY PO ; Start 02/17/17 at 09:00 Pneumococcal Polyvalent Vaccine (Pneumovax-23 Inj) 25 mcg ONCE ONCE IM ; Start 02/18/17 at 10:00; Stop 02/18/17 at 10:01 Influenza Virus Vaccine (Flu (Quadrivalent) Vaccine Inj) 0.5 ml ONCE ONCE IM ; Start 02/18/17 at 10:00; Stop 02/18/17 at 10:01 Pharmacy Profile Note 0 ml @ 0 mls/hr UNSCH OTHER ; Start 02/17/17 at 07:00; Stop 02/17/17 at 07:10; Status DC Piperacillin Sod/ Tazobactam Sod 50 ml @ 100 mls/hr Q6H IV ; Start 02/17/17 at 07:00 A/P Assessment and Plan R foot cellulitis s/p Maher bunionectomy and 2nd digit hammer toe repair. -d/w with Dr. Turner: examined and redressed wound, blister present and denuded, infection likely superficial, will continue IV abx with goal for d/c home tomorrow on oral abx. -continue to follow with podiatry. HTN -continue home carvedilol and lisinopril COPD -continue home Symbicort -duonebs PRN shortness of breath hypothyroid -continue home Synthroid atrial fibrillation -telemetry monitoring Nas Dye M3 Feb 17, 2017 09:52
[2017-02-17 12:00] VITALS: BP 103/62; PULSE 73; RESP 16; TEMP 97.3; O2SAT 96
[2017-02-17] MEDS: BUDESONIDE-FORMOTEROL 160/4.5 MCG INHALER INH SCH ×2 (13:55→19:57)
[2017-02-17] MEDS: SODIUM CHLORIDE 0.9% FLUSH 10 ML FLUSH IV FLUSH SCH ×2 (13:55→19:57)
[2017-02-17 16:00] VITALS: BP 112/64; PULSE 77; RESP 16; TEMP 99.6; O2SAT 95
[2017-02-17 20:00] VITALS: BP 98/57; PULSE 77; RESP 18; TEMP 98; O2SAT 96
[2017-02-17 20:15] VITALS: PULSE 85
[2017-02-18] VITALS: BP 102/60; PULSE 73; RESP 18; TEMP 98.7; O2SAT 96
[2017-02-18] MEDS: PIPERACIL-TAZO 3.375 GM PREMIX 50 ML IV SCH ×3 (01:06→13:00)
[2017-02-18] MEDS: oxyCODONE/ACETAMINOPHEN 10 MG/325 MG TAB PO PRN ×4 (02:38→15:30)
[2017-02-18 04:00] VITALS: BP 104/64; PULSE 88; RESP 18; TEMP 97.5; O2SAT 95
[2017-02-18 06:00] LABS: AUTOMATED NEUTROPHIL # 5.3 TH/MM3 (1.8-7.7); BASOPHIL % 0.2 % (0.0-2.0); EOSINOPHIL # 0.1 TH/MM3 (0-0.4); EOSINOPHIL % 1.9 % (0.0-4.0); HEMATOCRIT 37.5 % (39.0-51.0); HEMO FLAGS DIFF FINAL; LYMPH % 14.4 % (9.0-44.0); MEAN CELL VOLUME 87.8 FL (80.0-100.0); MEAN CORPUSCULAR HEMOGLOBIN 29.6 PG (27.0-34.0); MEAN CORPUSCULAR HGB CONC 33.7 % (32.0-36.0); MONO % 11.5 % (0.0-8.0); PLATELET COUNT 259 TH/MM3 (150-450); RED BLOOD COUNT 4.28 MIL/MM3 (4.50-5.90); RED CELL DISTRIBUTION WIDTH 14.8 % (11.6-17.2); WHITE BLOOD COUNT 7.3 TH/MM3 (4.0-11.0)
[2017-02-18 06:10] LABS: POTASSIUM 3.9 MEQ/L (3.5-5.1)
[2017-02-18] MEDS: LEVOTHYROXINE SODIUM 125 MCG TAB PO SCH (06:38)
[2017-02-18 08:00] VITALS: BP 111/76; PULSE 80; RESP 16; TEMP 97; O2SAT 16
--- NOTE | 2017-02-18 08:20 | PD.PN.STU ---
Subjective Remarks Pain in R foot which patient states is well-controlled. No complaints today. No swelling or spreading redness in leg. Pt ready for discharge. Objective Vitals Vital Signs Date Time Temp Pulse Resp B/P (MAP) Pulse Ox O2 Delivery O2 Flow Rate FiO2 02/18/17 04:00 97.5 88 18 104/64 (77) 95 02/18/17 03:38 18 02/18/17 00:00 98.7 73 18 102/60 (74) 96 02/17/17 20:15 85 02/17/17 20:00 98.0 77 18 98/57 (71) 96 02/17/17 16:00 99.6 77 16 112/64 (80) 95 02/17/17 12:00 97.3 73 16 103/62 (76) 96 I/O 02/17/17 02/17/17 02/17/17 02/18/17 02/18/17 02/18/17 07:00 15:00 23:00 07:00 15:00 23:00 Intake Total 240 ml 100 ml 1490 ml 370 ml Balance 240 ml 100 ml 1490 ml 370 ml Intake Oral 240 ml 1440 ml 320 ml IV Total 100 ml 50 ml 50 ml # Voids 1 3 2 # Bowel Movements 0 0 Result Diagram: 02/18/17 0435 02/18/17 0435 Other Results Laboratory Tests Test 02/18/17 04:35 White Blood Count 7.3 TH/MM3 Red Blood Count 4.28 MIL/MM3 Hemoglobin 12.7 GM/DL Hematocrit 37.5 % Mean Corpuscular Volume 87.8 FL Mean Corpuscular Hemoglobin 29.6 PG Mean Corpuscular Hemoglobin Concent 33.7 % Red Cell Distribution Width 14.8 % Platelet Count 259 TH/MM3 Mean Platelet Volume 8.0 FL Neutrophils (%) (Auto) 72.0 % Lymphocytes (%) (Auto) 14.4 % Monocytes (%) (Auto) 11.5 % Eosinophils (%) (Auto) 1.9 % Basophils (%) (Auto) 0.2 % Neutrophils # (Auto) 5.3 TH/MM3 Lymphocytes # (Auto) 1.0 TH/MM3 Monocytes # (Auto) 0.8 TH/MM3 Eosinophils # (Auto) 0.1 TH/MM3 Basophils # (Auto) 0.0 TH/MM3 CBC Comment DIFF FINAL Differential Comment Blood Urea Nitrogen 13 MG/DL Creatinine 1.05 MG/DL Random Glucose 90 MG/DL Calcium Level 8.5 MG/DL Sodium Level 138 MEQ/L Potassium Level 3.9 MEQ/L Chloride Level 102 MEQ/L Carbon Dioxide Level 25.0 MEQ/L Anion Gap 11 MEQ/L Estimat Glomerular Filtration Rate 73 ML/MIN Objective Remarks GENERAL: SKIN: Warm and dry. HEAD: Atraumatic. Normocephalic. EYES: Pupils equal and round. No scleral icterus. No injection or drainage. ENT: No nasal bleeding or discharge. Mucous membranes pink and moist. NECK: Trachea midline. No JVD. CARDIOVASCULAR: Regular rate and rhythm. RESPIRATORY: No accessory muscle use. Clear to auscultation. Breath sounds equal bilaterally. GASTROINTESTINAL: Abdomen soft, non-tender, nondistended. Hepatic and splenic margins not palpable. MUSCULOSKELETAL: Extremities without clubbing, cyanosis, or edema. No obvious deformities. Surgical dressing on R foot, 2nd digit exposed with surgical pin present. No pretibial edema or erythema in R leg. NEUROLOGICAL: Awake and alert. No obvious cranial nerve deficits. Motor grossly within normal limits. Normal speech. Moves R toes within dressing. Reduced sensation to monofilament in R 1st toe, intact in other digits. Pressure sensation intact in all toes. PSYCHIATRIC: Appropriate mood and affect; insight and judgment normal. Medications and IVs Current Medications Sodium Chloride (NS Flush) 2 ml UNSCH PRN IV FLUSH FLUSH AFTER USING IV ACCESS ; Start 02/17/17 at 05:00 Sodium Chloride (NS Flush) 2 ml BID IV FLUSH Last administered on 02/17/17t 19 :57; Start 02/17/17 at 09:00 Acetaminophen (Tylenol) 650 mg Q4H PRN PO TEMP > 100.4; Start 02/17/17 at 05: 00 Naloxone HCl (Narcan Inj) 0.4 mg UNSCH PRN IV PUSH SEE LABEL COMMENTS; Start 02/17/17 at 05:00 Magnesium Hydroxide (Milk Of Magnesia Liq) 30 ml Q12H PRN PO Mild constipation ; Start 02/17/17 at 05:00 Sennosides (Senokot) 17.2 mg Q12H PRN PO Moderate constipation; Start at 05:00 Bisacodyl (Dulcolax Supp) 10 mg DAILY PRN RECTAL SEVERE CONSITIPATION; Start 02/17/17 at 05:00 Lactulose (Lactulose Liq) 30 ml DAILY PRN PO SEVERE CONSITIPATION; Start 02/17 at 05:00 Albuterol/ Ipratropium (Duoneb Neb) 1 ampule Q4HR NEB PRN NEB WHEEZING; Start 02/17/17 at 05:00 Oxycodone/ Acetaminophen (Percocet 10-325 Mg) 1 tab Q4H PRN PO Pain > 4 Last administered on 02/18/17 06:40; Start 02/17/17 at 05:15 Carvedilol (Coreg) 6.25 mg DAILY PO Last administered on 02/17/17 09:29; Start 02/17/17 at 09:00 Levothyroxine Sodium (Synthroid) 125 mcg DAILY@0600 PO Last administered on 06:38; Start 02/17/17 at 09:00 Lisinopril (Prinivil) 5 mg DAILY PO Last administered on 02/17/17 09:29; Start 02/17/17 at 09:00 Budesonide/ Formoterol Fumarate (Symbicort 160-4.5 Inh) 2 puff BID INH Last administered on 02/17/17 19:57; Start 02/17/17 at 09:00 Pantoprazole Sodium (Protonix) 20 mg DAILY PO Last administered on 02/17/17 09:29; Start 02/17/17 at 09:00 Pneumococcal Polyvalent Vaccine (Pneumovax-23 Inj) 25 mcg ONCE ONCE IM ; Start 02/18/17 at 10:00; Stop 02/18/17 at 10:01 Influenza Virus Vaccine (Flu (Quadrivalent) Vaccine Inj) 0.5 ml ONCE ONCE IM ; Start 02/18/17 at 10:00; Stop 02/18/17 at 10:01 Pharmacy Profile Note 0 ml @ 0 mls/hr UNSCH OTHER ; Start 02/17/17 at 07:00; Stop 02/17/17 at 07:10; Status DC Piperacillin Sod/ Tazobactam Sod 50 ml @ 100 mls/hr Q6H IV Last administered on 02/18/17 06:38; Start 02/17/17 at 07:00 A/P Assessment and Plan R foot cellulitis s/p Maher bunionectomy and 2nd digit hammer toe repair. -will continue IV Zosyn with goal for d/c home today on oral abx. -continue to follow with podiatry. HTN -continue home carvedilol and lisinopril COPD -continue home Symbicort -duonebs PRN shortness of breath hypothyroid -continue home Synthroid atrial fibrillation -telemetry monitoring Nas Dye M3 Feb 18, 2017 08:20
[2017-02-18 09:00] VITALS: PULSE 80
[2017-02-18] MEDS: SODIUM CHLORIDE 0.9% FLUSH 10 ML FLUSH IV FLUSH SCH (09:07)
[2017-02-18] MEDS: CARVEDILOL 6.25 MG TAB PO SCH (09:07)
[2017-02-18] MEDS: LISINOPRIL 5 MG TAB PO SCH (09:07)
[2017-02-18] MEDS: PANTOPRAZOLE SOD 20 MG DELAYED RELEASE TAB PO SCH (09:07)
[2017-02-18] MEDS: BUDESONIDE-FORMOTEROL 160/4.5 MCG INHALER INH SCH (09:15)
[2017-02-18] MEDS ORDERED: PNEUMOCOCCAL POLYVALENT INJ 25 MCG/0.5 ML SYR IM ONE (10:00)
[2017-02-18] MEDS ORDERED: INFLUENZA VIRUS VACCINE (QUADRIVALENT) 0.5 ML SYR IM ONE (10:00)
[2017-02-18] MEDS ORDERED: CEPH-460 PO (10:16)
--- NOTE | 2017-02-18 10:16 | HHI.DCPOC ---
Discharge Care Plan Diagnosis: (1) Cellulitis, wound, post-operative Goals to Promote Your Health * To prevent worsening of your condition and complications * To maintain your health at the optimal level Directions to Meet Your Goals Take your medications as prescribed Follow your dietary instruction Follow activity as directed Keep your appointments as scheduled Take your immunizations and boosters as scheduled If your symptoms worsen call your PCP, if no PCP go to Urgent Care Center or Emergency Room Smoking is Dangerous to Your Health. Avoid second hand smoke Call the 24-hour hour crisis hotline for domestic abuse at Jarrett Resendiz MD Feb 18, 2017 10:16
--- NOTE | 2017-02-18 11:21 | HHI.PR ---
Subjective Remarks Patient reports is feeling well. Anxious to go home. Afebrile. Pain is controlled. Objective Vitals Vital Signs Date Time Temp Pulse Resp B/P (MAP) Pulse Ox O2 Delivery O2 Flow Rate FiO2 02/18/17 08:00 97.0 80 16 111/76 (88) 16 02/18/17 04:00 97.5 88 18 104/64 (77) 95 02/18/17 03:38 18 02/18/17 00:00 98.7 73 18 102/60 (74) 96 02/17/17 20:15 85 02/17/17 20:00 98.0 77 18 98/57 (71) 96 02/17/17 16:00 99.6 77 16 112/64 (80) 95 02/17/17 12:00 97.3 73 16 103/62 (76) 96 I/O 02/17/17 02/17/17 02/17/17 02/18/17 02/18/17 02/18/17 07:00 15:00 23:00 07:00 15:00 23:00 Intake Total 240 ml 100 ml 1490 ml 370 ml Balance 240 ml 100 ml 1490 ml 370 ml Intake Oral 240 ml 1440 ml 320 ml IV Total 100 ml 50 ml 50 ml # Voids 1 3 2 # Bowel Movements 0 0 Result Diagram: 02/18/175 02/18/17434 Objective Remarks GENERAL: This is a well-nourished, well-developed patient, in no apparent distress. CARDIOVASCULAR: Normal rate and regular rhythm without murmurs, gallops, or rubs. RESPIRATORY: Good respiratory efforts. Breath sounds equal and clear to auscultation bilaterally. GASTROINTESTINAL: Abdomen soft, non-tender, non-distended. Normal active bowel sounds MUSCULOSKELETAL: Postop right foot. Tip of the toes pink. No erythema. NEURO: Alert & Oriented x4 to person, place, time, situation. Moves all ext x4 PSYCH: Appropriate mood and affect. A/P Problem List: (1) Cellulitis, wound, post-operative ICD Code: T81.4XXA - Infection following a procedure, initial encounter Status: Acute (2) COPD (chronic obstructive pulmonary disease) ICD Code: J44.9 - Chronic obstructive pulmonary disease, unspecified Status: Chronic (3) Hypertension ICD Code: I10 - Essential (primary) hypertension Status: Chronic (4) Hypothyroidism ICD Code: E03.9 - Hypothyroidism, unspecified Status: Chronic (5) Atrial fibrillation ICD Code: I48.91 - Unspecified atrial fibrillation Assessment and Plan 56-year-old male admitted for cellulitis postop right foot bunionectomy and second digit hammertoe fixation. 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 This was thought to be early cellulitis if any. Patient was treated with IV antibiotics for 24 hours and discharged home on Keflex. He is to continue on his chronic home medications. Discharge home in good condition Activity: Per podiatry orders Diet: Heart healthy Meds: Per med rec Follow-up with: Podiatry Problem Qualifiers (1) Cellulitis, wound, post-operative: Qualified Codes: T81.4XXA - Infection following a procedure, initial encounter Jarrett Resendiz MD Feb 18, 2017 11:21
[2017-02-18 12:00] VITALS: BP 126/67; PULSE 71; RESP 16; TEMP 97.1; O2SAT 96
== END 2017-02-18 17:37 | disposition home or self-care (01) | DRG 863 ==
LOC: INTOOBSV 02:45 → N07B 02:45 → OBSVTOIN 04:58
PROVIDERS: ADMIT Family Medicine; ATTEND Family Medicine
DX: T81.4XXA Infection following a procedure, initial encounter (principal); I48.91 Unspecified atrial fibrillation; I10 Essential (primary) hypertension; L03.031 Cellulitis of right toe; J44.9 Chronic obstructive pulmonary disease, unspecified; Z85.71 Personal history of Hodgkin lymphoma; Z85.528 Personal history of other malignant neoplasm of kidney; G47.30 Sleep apnea, unspecified; F32.9 Major depressive disorder, single episode, unspecified; M85.80 Other specified disorders of bone density and structure, unspecified site; Z86.73 Personal history of transient ischemic attack (TIA), and cerebral infarction without residual deficits; Z90.5 Acquired absence of kidney; K21.9 Gastro-esophageal reflux disease without esophagitis; J32.9 Chronic sinusitis, unspecified; F17.210 Nicotine dependence, cigarettes, uncomplicated; E03.9 Hypothyroidism, unspecified; M10.9 Gout, unspecified; M19.90 Unspecified osteoarthritis, unspecified site; Z23 Encounter for immunization
CPT/HCPCS: 80048; 85025; 90732; J2543